=== PATIENT | female | born 1950 | race Caucasian/White ===

== ENCOUNTER 2016-03-26 16:34 | Emergency (ER) | payer MEDICARE | END 2016-03-26 19:09 | disposition left against medical advice (07) | LOC: ER 16:34 | DX: Z53.21 Procedure and treatment not carried out due to patient leaving prior to being seen by health care provider (principal) ==

== ENCOUNTER 2016-04-01 12:33 | Emergency (ER) | payer MEDICARE ==
[2016-04-01] MEDS ORDERED: TDaP 0.5 ML VIAL IM.VACC ONE (14:24)
== END 2016-04-01 14:59 | disposition home or self-care (01) ==
LOC: ER 12:33
DX: S60.511A Abrasion of right hand, initial encounter (principal); X58.XXXA Exposure to other specified factors, initial encounter; Y93.89 Activity, other specified; Y92.89 Other specified places as the place of occurrence of the external cause; Z79.899 Other long term (current) drug therapy
CPT/HCPCS: 80047; 85014; 90471